=== PATIENT | female | born 1930 | race Two or more races ===

== ENCOUNTER 2016-07-31 13:05 | Observation (INO) | payer MEDICARE, OTHER ==
[~2016-07-31] VITALS: Ht 162.6 cm; Wt 62.1 kg
[2016-07-31] MEDS ORDERED: SODIUM CHLORIDE 0.9% 250 ML IV ONE (13:14)
[2016-07-31 13:32] LABS: BASOPHILS % 0.9 % (0.0-2.0); EOSINOPHILS % 0.5 % (0.0-5.0); HEMATOCRIT. 36.8 % (36.0-48.0); HEMOGLOBIN. 12.2 g/dL (12.0-16.0); LYMPHOCYTES % 25.3 % (20.0-50.0); MEAN CORPUSCULAR HEMOGLOBIN 32.7 pg (28.0-32.0); MEAN CORPUSCULAR HGB CONC 33.2 g/dL (31.0-37.0); MEAN CORPUSCULAR VOLUME 98.6 fL (81.0-99.0); MEAN PLATELET VOLUME 8.3 fl (7.4-10.4); MONOCYTES % 4.6 % (2.0-8.0); NEUTROPHILS % 68.7 % (40.0-76.0); PLATELET 282 x1000/uL (130-400); RED BLOOD CELL COUNT 3.73 mill/uL (4.2-5.4); RED CELL DISTRIBUTION WIDTH 14.4 % (11.6-14.6); WHITE BLOOD COUNT 7.7 x1000/uL (4.5-11.0)
[2016-07-31 13:38] LABS: CHLORIDE 110 mEq/L (98-107); INDEX HEMOLYSI 1 (1-3); INDEX ICTERIC 1 (1-4); INDEX LIPEMIC 1 (1-3)
[2016-07-31 13:40] LABS: PARTIAL THROMBOPLASTIN TIME 26.8 sec (24.0-34.0); PROTHROMBIN TIME 10.2 sec
[2016-07-31 13:47] LABS: ALANINE AMINOTRANSFERASE < 6 IU/L (13-61); ALBUMIN 3.5 g/dL (3.4-5.0); ANION GAP 17; CALCIUM 8.6 mg/dL (8.5-10.1); CARBON DIOXIDE 17 mEq/L (21-32); MAGNESIUM 2.5 mg/dL (1.8-2.4); TROPONIN I < 0.02 ng/mL (0.00-0.04); UREA NITROGEN BLOOD 40 mg/dL (7-21); eGFR 12 mL/min (>60)
[2016-07-31 13:50] LABS: CREATINE KINASE MB FRACTION 0.8 ng/mL (0.5-3.6); NT PRO B-TYPE NATRIURETIC PEP 349 pg/mL (5-125)
[2016-07-31] MEDS ORDERED: DEXTROSE 50% WATER 50ML SYRINGE IV ONE ×2 (14:08→14:15)
[2016-07-31] MEDS ORDERED: IPRATROPIUM/ALBUTEROL 0.5-3(2.5)MG/3ML NEB INH PRN (15:45)
[2016-07-31] MEDS ORDERED: ONDANSETRON HCL 4MG/2ML VIAL IV PRN (15:45)
[2016-07-31] MEDS ORDERED: ACETAMINOPHEN 325MG TABLET PO PRN (15:45)
[2016-07-31] MEDS ORDERED: CLONIDINE 0.1MG TABLET PO PRN (15:45)
[2016-07-31] MEDS ORDERED: DOCUSATE SODIUM 100MG CAPSULE PO PRN (15:45)
[2016-07-31] MEDS ORDERED: HYDROCODONE/ACETAMINOPHEN 5/325MG TABLET PO PRN (15:45)
[2016-07-31] MEDS ORDERED: DEXTROSE 50% WATER 50ML SYRINGE IV PRN (15:45)
[2016-07-31 17:14] LABS: CLARITY URINE CLEAR (CLEAR); COLOR URINE YELLOW (YELLOW); GLUCOSE URINE NEGATIVE (NEGATIVE); KETONES URINE NEGATIVE (NEGATIVE); LEUKOCYTE ESTERASE URINE 1+ (NEGATIVE); NITRITE URINE NEGATIVE (NEGATIVE); OCCULT BLOOD URINE NEGATIVE (NEGATIVE); PROTEIN URINE TRACE (NEGATIVE); SPECIFIC GRAVITY URINE 1.016 (1.005-1.030); UROBILINOGEN URINE 0.2 E.U./dL (0.2-1.0)
[2016-07-31 18:00] LABS: BACTERIA URINE 1+; RBC URINE 0-2 /hpf (0-2); SQUAMOUS EPITHELIAL CELL URINE FEW /lpf (RARE/1+); WBC URINE 0-2 /hpf (0-2)
[2016-07-31] MEDS: HEPARIN 5000 UNITS/ML VIAL SUBCUT SCH (23:42)
[2016-07-31] MEDS ORDERED: LEVE500T19 PO (23:59)
[2016-07-31] MEDS ORDERED: GABA-531 PO (23:59)
[2016-07-31] MEDS ORDERED: SIMV10TA6 PO (23:59)
[2016-07-31] MEDS ORDERED: SERT25TA74 PO (23:59)
[2016-07-31] MEDS ORDERED: CLOP75TA33 PO (23:59)
[2016-07-31] MEDS ORDERED: RANI150T7 PO (23:59)
[2016-07-31] MEDS ORDERED: HYDR25TA PO (23:59)
[2016-07-31] MEDS ORDERED: TEMA15CA46 PO (23:59)
[2016-07-31] MEDS ORDERED: IBUP-1510 PO (23:59)
[2016-08-01] VITALS (9 sets, daily range): BP systolic 103–144; BP diastolic 64–93
[2016-08-01] MEDS: SODIUM CHLORIDE 0.9% 1,000 ML IV SCH ×2 (01:03→19:54)
[2016-08-01] MEDS ORDERED: TEMAZEPAM 15MG CAPSULE PO PRN (01:30)
[2016-08-01] MEDS: IPRATROPIUM/ALBUTEROL 0.5-3(2.5)MG/3ML NEB INH SCH ×3 (01:53→20:38)
[2016-08-01] MEDS ORDERED: LEVOFLOXACIN 500MG PREMIX 100 ML IV NR (03:00)
[2016-08-01] MEDS: BLOOD SUGAR DIAGNOSTIC STRIP TEST SCH ×4 (05:54→20:35)
[2016-08-01 06:09] LABS: CHLORIDE 112 mEq/L (98-107); INDEX HEMOLYSI 1 (1-3); INDEX ICTERIC 1 (1-4); INDEX LIPEMIC 1 (1-3)
[2016-08-01 06:20] LABS: ALANINE AMINOTRANSFERASE < 6 IU/L (13-61); ANION GAP 15; CARBON DIOXIDE 18 mEq/L (21-32); T4 FREE 0.57 ng/dL (0.76-1.46); TROPONIN I < 0.02 ng/mL (0.00-0.04); eGFR 17 mL/min (>60)
[2016-08-01 06:24] LABS: BASOPHILS % 0.5 % (0.0-2.0); HEMATOCRIT. 31.8 % (36.0-48.0); HEMOGLOBIN. 10.4 g/dL (12.0-16.0); MEAN CORPUSCULAR HGB CONC 32.8 g/dL (31.0-37.0); MEAN CORPUSCULAR VOLUME 97.6 fL (81.0-99.0); MEAN PLATELET VOLUME 8.8 fl (7.4-10.4); MONOCYTES % 7.1 % (2.0-8.0); NEUTROPHILS % 62.4 % (40.0-76.0); PLATELET 242 x1000/uL (130-400); RED BLOOD CELL COUNT 3.26 mill/uL (4.2-5.4); RED CELL DISTRIBUTION WIDTH 14.4 % (11.6-14.6); WHITE BLOOD COUNT 8.1 x1000/uL (4.5-11.0)
[2016-08-01] MEDS: INSULIN LISPRO 100 UNITS/ML SUBCUT SCH ×4 (06:26→20:35)
[2016-08-01 06:45] LABS: ALBUMIN 2.8 g/dL (3.4-5.0); CALCIUM 8.1 mg/dL (8.5-10.1); UREA NITROGEN BLOOD 35 mg/dL (7-21)
[2016-08-01] MEDS: HEPARIN 5000 UNITS/ML VIAL SUBCUT SCH ×2 (11:01→20:42)
[2016-08-01] MEDS: ASPIRIN 81MG EC TABLET PO SCH (11:01)
[2016-08-02] VITALS: BP_SYST 111; BP_SYST 117; BP_DIAS 75; BP_DIAS 77
[2016-08-02] MEDS: IPRATROPIUM/ALBUTEROL 0.5-3(2.5)MG/3ML NEB INH SCH (00:48)
[2016-08-02 04:00] VITALS: BP 134/83
[2016-08-02] MEDS: BLOOD SUGAR DIAGNOSTIC STRIP TEST SCH ×2 (06:12→12:23)
[2016-08-02] MEDS: INSULIN LISPRO 100 UNITS/ML SUBCUT SCH ×2 (06:21→12:15)
[2016-08-02 08:00] VITALS: BP 117/80
[2016-08-02] MEDS: ASPIRIN 81MG EC TABLET PO SCH (08:59)
[2016-08-02] MEDS: HEPARIN 5000 UNITS/ML VIAL SUBCUT SCH (09:02)
[2016-08-02 12:00] VITALS: BP 117/64
[2016-08-02 12:45] VITALS: BP 117/64
[2016-08-03] MEDS ORDERED: LEVOFLOXACIN 250MG PREMIX 50 ML IV SCH (03:00)
== END 2016-08-02 16:00 | disposition home or self-care (01) ==
LOC: ER 13:42 → INTOOBSV 14:18 → 5WST 14:18
PROVIDERS: ADMIT Internal Medicine; ATTEND Internal Medicine
DX: R55 Syncope and collapse (principal); N18.9 Chronic kidney disease, unspecified; I12.9 Hypertensive chronic kidney disease with stage 1 through stage 4 chronic kidney disease, or unspecified chronic kidney disease; E78.5 Hyperlipidemia, unspecified; R42 Dizziness and giddiness; R47.81 Slurred speech; E78.00 Pure hypercholesterolemia, unspecified; E16.2 Hypoglycemia, unspecified; E87.2 Acidosis; N17.9 Acute kidney failure, unspecified; J84.10 Pulmonary fibrosis, unspecified; G93.40 Encephalopathy, unspecified; F17.200 Nicotine dependence, unspecified, uncomplicated; Z87.440 Personal history of urinary (tract) infections; Z96.649 Presence of unspecified artificial hip joint; Z86.73 Personal history of transient ischemic attack (TIA), and cerebral infarction without residual deficits
CPT/HCPCS: 36415; 70450; 70551; 71010; 80053; 81001; 82553; 82962; 83735; 83880; 84439; 84484; 85025; 85610; 85730; 93005; 93306; 93880; 94640; 96361; 96365; 96372; 96375; 97162; 97166; 99285; G0378; J1644; J1956; J7030; J7050; J7620

== ENCOUNTER 2016-08-06 08:59 | Observation (INO) | payer MEDICARE ==
[~2016-08-06] VITALS: Ht 162.6 cm; Wt 78.0 kg
[~2016-08-06 08:59] MED LIST: CLOP75TA33 PO; GABA-531 PO; IBUP-1510 PO; LEVE500T19 PO; RANI150T7 PO; SERT25TA74 PO; SIMV10TA6 PO; TEMA15CA46 PO
[2016-08-06 09:34] LABS: EOSINOPHILS % 2.7 % (0.0-5.0); HEMATOCRIT. 35.6 % (36.0-48.0); HEMOGLOBIN. 11.5 g/dL (12.0-16.0); LYMPHOCYTES % 34.8 % (20.0-50.0); MEAN CORPUSCULAR HEMOGLOBIN 32.2 pg (28.0-32.0); MEAN CORPUSCULAR HGB CONC 32.3 g/dL (31.0-37.0); MEAN CORPUSCULAR VOLUME 99.8 fL (81.0-99.0); MEAN PLATELET VOLUME 8.3 fl (7.4-10.4); MONOCYTES % 5.3 % (2.0-8.0); NEUTROPHILS % 56.2 % (40.0-76.0); PLATELET 268 x1000/uL (130-400); RED BLOOD CELL COUNT 3.57 mill/uL (4.2-5.4); RED CELL DISTRIBUTION WIDTH 14.8 % (11.6-14.6); WHITE BLOOD COUNT 7.6 x1000/uL (4.5-11.0)
[2016-08-06 09:38] LABS: DIFFERENTIAL COMMENT 1
[2016-08-06 09:41] LABS: PROTHROMBIN TIME 10.4 sec
[2016-08-06 09:46] LABS: ALANINE AMINOTRANSFERASE < 6 IU/L (13-61); ALBUMIN 3.3 g/dL (3.4-5.0); ANION GAP 14; CALCIUM 9.1 mg/dL (8.5-10.1); CARBON DIOXIDE 21 mEq/L (21-32); CHLORIDE 115 mEq/L (98-107); ETHANOL BLOOD < 10 mg/dL; INDEX HEMOLYSI 1 (1-3); INDEX ICTERIC 1 (1-4); INDEX LIPEMIC 1 (1-3); LIPASE 145 IU/L (73-393); UREA NITROGEN BLOOD 35 mg/dL (7-21); eGFR 15 mL/min (>60)
[2016-08-06 09:50] LABS: NT PRO B-TYPE NATRIURETIC PEP 415 pg/mL (5-125); TROPONIN I < 0.02 ng/mL (0.00-0.04)
[2016-08-06 11:42] LABS: CLARITY URINE CLEAR (CLEAR); COLOR URINE YELLOW (YELLOW); GLUCOSE URINE NEGATIVE (NEGATIVE); KETONES URINE NEGATIVE (NEGATIVE); LEUKOCYTE ESTERASE URINE NEGATIVE (NEGATIVE); NITRITE URINE NEGATIVE (NEGATIVE); OCCULT BLOOD URINE NEGATIVE (NEGATIVE); PH URINE 5.5 (4.5-8.0); PROTEIN URINE TRACE (NEGATIVE); SPECIFIC GRAVITY URINE 1.018 (1.005-1.030); UROBILINOGEN URINE 0.2 E.U./dL (0.2-1.0)
[2016-08-06 11:58] LABS: BACTERIA URINE NONE SEEN; RBC URINE 0-2 /hpf (0-2); WBC URINE 0-2 /hpf (0-2)
[2016-08-06 12:00] LABS: FINE GRANULAR CASTS URINE 0-5 /lpf; SQUAMOUS EPITHELIAL CELL URINE FEW /lpf (RARE/1+)
[2016-08-06] MEDS ORDERED: HYDROCODONE/ACETAMINOPHEN 5/325MG TABLET PO PRN (15:15)
[2016-08-06] MEDS ORDERED: ACETAMINOPHEN 325MG TABLET PO PRN (15:15)
[2016-08-06] MEDS ORDERED: ONDANSETRON HCL 4MG/2ML VIAL IV PRN (15:15)
[2016-08-06] MEDS ORDERED: IPRATROPIUM/ALBUTEROL 0.5-3(2.5)MG/3ML NEB INH PRN (15:15)
[2016-08-06] MEDS ORDERED: CLONIDINE 0.1MG TABLET PO PRN (15:15)
[2016-08-06 17:28] VITALS: BP 135/68
[2016-08-06] MEDS: ENOXAPARIN 30MG/0.3ML SYR SUBCUT SCH (18:00)
[2016-08-06] MEDS: SERTRALINE HCL 50MG TABLET PO SCH (18:43)
[2016-08-06] MEDS: CLOPIDOGREL 75MG TABLET PO SCH (18:43)
[2016-08-06] MEDS: LEVETIRACETAM 500MG TABLET PO SCH (18:43)
[2016-08-06 18:51] VITALS: BP 135/68
[2016-08-06 20:00] VITALS: BP 143/91
[2016-08-06] MEDS ORDERED: TEMAZEPAM 15MG CAPSULE PO PRN (21:00)
[2016-08-06] MEDS ORDERED: GABAPENTIN 300MG CAPSULE PO SCH (21:00)
[2016-08-06 23:01] LABS: CREATINE KINASE 88 IU/L (26-192); INDEX HEMOLYSI 1 (1-3); TROPONIN I < 0.02 ng/mL (0.00-0.04)
[2016-08-07] VITALS: BP 127/69
[2016-08-07 04:00] VITALS: BP 157/98
[2016-08-07 06:59] LABS: ALANINE AMINOTRANSFERASE < 6 IU/L (13-61); CHLORIDE 116 mEq/L (98-107); CREATINE KINASE 83 IU/L (26-192); HDL CHOLESTEROL 64 mg/dL (40-59); INDEX HEMOLYSI 1 (1-3); INDEX ICTERIC 1 (1-4); INDEX LIPEMIC 1 (1-3); T4 FREE 0.53 ng/dL (0.76-1.46); TROPONIN I < 0.02 ng/mL (0.00-0.04)
[2016-08-07 07:10] LABS: ALBUMIN 3.1 g/dL (3.4-5.0); ANION GAP 14; CALCIUM 9.2 mg/dL (8.5-10.1); CARBON DIOXIDE 20 mEq/L (21-32); LDL CHOLESTEROL 93 mg/dL (5-100); TRIGLYCERIDE 162 mg/dL (0-150); UREA NITROGEN BLOOD 33 mg/dL (7-21); eGFR 20 mL/min (>60)
[2016-08-07 07:31] LABS: BASOPHILS % 0.5 % (0.0-2.0); DIFFERENTIAL COMMENT 0; EOSINOPHILS % 2.3 % (0.0-5.0); HEMATOCRIT. 38.3 % (36.0-48.0); HEMOGLOBIN. 12.1 g/dL (12.0-16.0); MEAN CORPUSCULAR HEMOGLOBIN 32.3 pg (28.0-32.0); MEAN CORPUSCULAR HGB CONC 31.6 g/dL (31.0-37.0); MEAN CORPUSCULAR VOLUME 102.1 fL (81.0-99.0); MONOCYTES % 5.5 % (2.0-8.0); NEUTROPHILS % 68.7 % (40.0-76.0); PLATELET 235 x1000/uL (130-400); RED BLOOD CELL COUNT 3.75 mill/uL (4.2-5.4); RED CELL DISTRIBUTION WIDTH 14.9 % (11.6-14.6); WHITE BLOOD COUNT 9.2 x1000/uL (4.5-11.0)
[2016-08-07 08:00] VITALS: BP 136/86
[2016-08-07] MEDS: LEVETIRACETAM 500MG TABLET PO SCH ×2 (09:47→17:06)
[2016-08-07] MEDS: SERTRALINE HCL 50MG TABLET PO SCH (09:47)
[2016-08-07] MEDS: CLOPIDOGREL 75MG TABLET PO SCH (09:47)
[2016-08-07 12:00] VITALS: BP 127/82
[2016-08-07 16:00] VITALS: BP 147/86
[2016-08-07] MEDS: ENOXAPARIN 30MG/0.3ML SYR SUBCUT SCH (17:06)
[2016-08-07 17:37] VITALS: BP 147/86
== END 2016-08-07 20:40 ==
LOC: ER 09:05 → 5WST 12:11 → INTOOBSV 12:11
PROVIDERS: ADMIT Internal Medicine; ATTEND Internal Medicine
DX: R47.9 Unspecified speech disturbances (principal); I12.9 Hypertensive chronic kidney disease with stage 1 through stage 4 chronic kidney disease, or unspecified chronic kidney disease; N18.9 Chronic kidney disease, unspecified; Z86.73 Personal history of transient ischemic attack (TIA), and cerebral infarction without residual deficits
CPT/HCPCS: 36415; 70450; 70551; 71010; 80053; 80061; 81001; 82550; 83690; 83880; 84439; 84443; 84484; 85025; 85610; 92523; 93005; 97163; 99285; G0378; G0482; J1650

== ENCOUNTER 2018-02-17 05:17 | Emergency (ER) | payer OTHER ==
[~2018-02-17] VITALS: Ht 162.6 cm; Wt 64.0 kg
[~2018-02-17 05:17] MED LIST changes: -IBUP-1510 PO; +IBUP-2030 PO; -TEMA15CA46 PO; +TEMA15CA5 PO
[2018-02-17 07:49] VITALS: BP 150/78
== END 2018-02-17 11:02 | disposition home or self-care (01) ==
LOC: ER 05:17
DX: S00.83XA Contusion of other part of head, initial encounter (principal); W01.198A Fall on same level from slipping, tripping and stumbling with subsequent striking against other object, initial encounter; R03.0 Elevated blood-pressure reading, without diagnosis of hypertension; Y93.01 Activity, walking, marching and hiking; Y92.091 Bathroom in other non-institutional residence as the place of occurrence of the external cause; I69.398 Other sequelae of cerebral infarction; R26.2 Difficulty in walking, not elsewhere classified
CPT/HCPCS: 71045; 99284

== ENCOUNTER 2022-01-07 01:39 | Inpatient (IN) | payer MEDICARE, OTHER ==
[~2022-01-07] VITALS: Ht 165.1 cm; Wt 76.7 kg
[~2022-01-07 01:39] MED LIST changes: -GABA-531 PO; +GABA-532 PO; -SIMV10TA6 PO; +SIMV10TA97 PO
[2022-01-07] MEDS ORDERED: MORPHINE SULFATE 4 MG/ML CPJ (NOT FOR IM USE) IV STA (02:51)
[2022-01-07] MEDS ORDERED: ONDANSETRON HCL 4MG/2ML INJ IV STA (02:51)
[2022-01-07] MEDS ORDERED: SODIUM CHLORIDE 0.9% 1,000 ML IV ONE (03:00)
[2022-01-07 03:12] LABS: BASOPHILS % 0.9 % (0.0-2.0); EOSINOPHILS % 1.9 % (0.0-5.0); HEMATOCRIT. 41.7 % (36.0-48.0); HEMOGLOBIN. 12.6 g/dL (12.0-16.0); LYMPHOCYTES % 28.6 % (20.0-50.0); MEAN CORPUSCULAR HEMOGLOBIN 31.9 pg (28.0-32.0); MEAN CORPUSCULAR VOLUME 105.4 fL (81.0-99.0); MEAN PLATELET VOLUME 8.2 fl (7.4-10.4); MONOCYTES % 8.5 % (2.0-8.0); NEUTROPHILS % 60.1 % (40.0-76.0); PLATELET 288 x1000/uL (130-400); RED BLOOD CELL COUNT 3.96 mill/uL (4.2-5.4); RED CELL DISTRIBUTION WIDTH 17.1 % (11.6-14.6)
[2022-01-07 03:23] LABS: PARTIAL THROMBOPLASTIN TIME 25.6 sec (23.4-31.0); PROTHROMBIN TIME 10.4 sec (9.6-11.0)
[2022-01-07 04:51] LABS: CHLORIDE 115 mEq/L (98-107)
[2022-01-07] MEDS ORDERED: DEXTROSE 50% WATER 50ML SYRINGE IV ONE (05:00)
[2022-01-07] MEDS ORDERED: ALBUTEROL (0.083%) 2.5MG/3ML NEB HHN ONE (05:00)
[2022-01-07] MEDS ORDERED: CALCIUM GLUCONATE 100MG/ML 10ML VIAL IV ONE (05:00)
[2022-01-07] MEDS ORDERED: SODIUM BICARBONATE 8.4% 1 MEQ/ML 50ML SYR IV ONE (05:00)
[2022-01-07] MEDS ORDERED: INSULIN REGULAR (HUMULIN R) 300UNITS/3ML VIAL IV ONE (05:00)
[2022-01-07] MEDS ORDERED: SODIUM POLYSTYRENE SULFONATE 15 G/60 ML BOT PO ONE (05:00)
[2022-01-07] MEDS ORDERED: SODIUM BICARBONATE 100 MEQ in DEXTROSE 5% WATER 1,000 ML IV SCH (06:00)
[2022-01-07 06:29] LABS: CREATINE KINASE 61 IU/L (26-192)
[2022-01-07 15:43] LABS: BG BASE EXCESS -8.2 mmol/L (-2.0-2.0); BG CARBOXYHEMOGLOBIN 0.4 % (0.5-1.5); BG HCO3 ACT 19.2 mmol/L (22.0-26.0); BG METHEMOGLOBIN 0.2 % (0.0-1.5); BG OXYHEMOGLOBIN 96.4 % (94.0-97.0); BG PCO2 46.7 mmHg (35.0-45.0); BG PH 7.231 (7.350-7.450); BG PO2 102.2 mmHg (75.0-100.0); BG SAMPLE SITE RIGHT BRACHIAL; BG TOTAL HEMOGLOBIN 12.3 g/dL (12.0-18.0); BG VENT MODE NASAL CANNULA
[2022-01-07 16:52] LABS: BASOPHILS % 0.8 % (0.0-2.0); EOSINOPHILS % 0.8 % (0.0-5.0); HEMATOCRIT. 35.9 % (36.0-48.0); HEMOGLOBIN. 11.5 g/dL (12.0-16.0); LYMPHOCYTES % 19.3 % (20.0-50.0); MEAN CORPUSCULAR HEMOGLOBIN 32.7 pg (28.0-32.0); MEAN CORPUSCULAR VOLUME 102.2 fL (81.0-99.0); MEAN PLATELET VOLUME 8.2 fl (7.4-10.4); MONOCYTES % 7.8 % (2.0-8.0); NEUTROPHILS % 71.3 % (40.0-76.0); PLATELET 286 x1000/uL (130-400); RED BLOOD CELL COUNT 3.51 mill/uL (4.2-5.4); RED CELL DISTRIBUTION WIDTH 16.6 % (11.6-14.6)
[2022-01-07 17:19] VITALS: BP 108/49
[2022-01-07 18:00] VITALS: BP 115/64
[2022-01-07 20:00] VITALS: BP 108/49
[2022-01-07 20:32] LABS: CHLORIDE 112 mEq/L (98-107)
[2022-01-07] MEDS ORDERED: SODIUM BICARBONATE 8.4% 1 MEQ/ML 50ML SYR IV NR (21:30)
[2022-01-07] MEDS ORDERED: DEXTROSE 50% WATER 50ML SYRINGE IV NR (21:30)
[2022-01-07] MEDS ORDERED: SODIUM POLYSTYRENE SULFONATE 15 G/60 ML BOT PO NR (21:30)
[2022-01-07] MEDS ORDERED: ACETAMINOPHEN 325MG TABLET PO PRN (21:30)
[2022-01-07] MEDS ORDERED: ZOLPIDEM TARTRATE 5MG TABLET PO PRN (21:30)
[2022-01-07] MEDS ORDERED: IPRATROPIUM/ALBUTEROL 0.5-3(2.5)MG/3ML NEB HHN PRN (21:30)
[2022-01-07] MEDS ORDERED: CLONIDINE 0.1MG TABLET PO PRN (21:30)
[2022-01-07] MEDS ORDERED: INSULIN REGULAR (HUMULIN R) 300UNITS/3ML VIAL IV NR (21:30)
[2022-01-07 21:45] VITALS: BP 108/49
[2022-01-07 22:00] VITALS: BP 115/64
[2022-01-07] MEDS: LEVETIRACETAM 500MG PREMIX 100 ML IV SCH (22:02)
[2022-01-07] MEDS ORDERED: DEXTROSE 50% WATER 50ML SYRINGE IV PRN (23:30)
[2022-01-08] VITALS (10 sets, daily range): BP systolic 99–136; BP diastolic 58–79
[2022-01-08] MEDS: BLOOD SUGAR DIAGNOSTIC STRIP TEST SCH ×4 (07:30→20:52)
[2022-01-08] MEDS: INSULIN LISPRO 100 UNITS/ML SUBCUT SCH ×4 (07:30→20:54)
[2022-01-08] MEDS: LEVETIRACETAM 500MG PREMIX 100 ML IV SCH ×2 (08:34→20:36)
[2022-01-08 09:20] LABS: BG BASE EXCESS -5.5 mmol/L (-2.0-2.0); BG CARBOXYHEMOGLOBIN 1.1 % (0.5-1.5); BG DEOXYHEMOGLOBIN 11.1 % (0.0-5.0); BG FRACTION INSPIRED OXYGEN 21; BG HCO3 ACT 21.6 mmol/L (22.0-26.0); BG OXYGEN SATURATION 88.8 % (92.0-98.5); BG OXYHEMOGLOBIN 87.8 % (94.0-97.0); BG PCO2 49.2 mmHg (35.0-45.0); BG PH 7.261 (7.350-7.450); BG PO2 57.8 mmHg (75.0-100.0); BG SAMPLE SITE RIGHT BRACHIAL; BG TOTAL HEMOGLOBIN 11.3 g/dL (12.0-18.0); BG VENT MODE ROOM AIR
[2022-01-08] MEDS ORDERED: ALBUTEROL (0.5%) 2.5MG/0.5ML NEB HHN NR (11:15)
[2022-01-08] MEDS: CITRIC ACID/SODIUM CITRATE SOLN 30ML UDC PO SCH ×2 (13:20→17:00)
[2022-01-08] MEDS: ATORVASTATIN CALCIUM 40MG TABLET PO SCH (20:36)
[2022-01-09] VITALS (9 sets, daily range): BP systolic 97–126; BP diastolic 55–79
[2022-01-09 06:48] LABS: BASOPHILS % 0.9 % (0.0-2.0); EOSINOPHILS % 2.5 % (0.0-5.0); HEMATOCRIT. 35.7 % (36.0-48.0); HEMOGLOBIN. 11.2 g/dL (12.0-16.0); LYMPHOCYTES % 30.7 % (20.0-50.0); MEAN CORPUSCULAR HEMOGLOBIN 32.4 pg (28.0-32.0); MEAN CORPUSCULAR VOLUME 103.1 fL (81.0-99.0); MEAN PLATELET VOLUME 8.8 fl (7.4-10.4); MONOCYTES % 8.5 % (2.0-8.0); NEUTROPHILS % 57.4 % (40.0-76.0); PLATELET 265 x1000/uL (130-400); RED BLOOD CELL COUNT 3.46 mill/uL (4.2-5.4); RED CELL DISTRIBUTION WIDTH 16.6 % (11.6-14.6)
[2022-01-09] MEDS: INSULIN LISPRO 100 UNITS/ML SUBCUT SCH ×4 (07:30→21:00)
[2022-01-09 07:35] LABS: T4 FREE 0.68 ng/dL (0.76-1.46)
[2022-01-09] MEDS: BLOOD SUGAR DIAGNOSTIC STRIP TEST SCH ×4 (08:04→21:17)
[2022-01-09] MEDS: LEVETIRACETAM 500MG PREMIX 100 ML IV SCH ×2 (08:57→21:17)
[2022-01-09] MEDS: CITRIC ACID/SODIUM CITRATE SOLN 30ML UDC PO SCH ×3 (08:57→17:00)
[2022-01-09] MEDS: ATORVASTATIN CALCIUM 40MG TABLET PO SCH (21:17)
[2022-01-10 04:00] VITALS: BP 117/74
[2022-01-10] MEDS: INSULIN LISPRO 100 UNITS/ML SUBCUT SCH ×4 (07:30→21:00)
[2022-01-10] MEDS: BLOOD SUGAR DIAGNOSTIC STRIP TEST SCH ×4 (07:30→21:20)
[2022-01-10] MEDS: LEVETIRACETAM 500MG PREMIX 100 ML IV SCH ×2 (09:39→21:20)
[2022-01-10] MEDS: CITRIC ACID/SODIUM CITRATE SOLN 30ML UDC PO SCH ×3 (09:39→16:51)
[2022-01-10 10:00] VITALS: BP 116/48
[2022-01-10 12:00] VITALS: BP 128/89
[2022-01-10 14:00] VITALS: BP 128/89
[2022-01-10 15:28] LABS: BASOPHILS % 0.5 % (0.0-2.0); EOSINOPHILS % 1.8 % (0.0-5.0); HEMOGLOBIN. 11.8 g/dL (12.0-16.0); LYMPHOCYTES % 21.3 % (20.0-50.0); MEAN CORPUSCULAR HEMOGLOBIN 32.3 pg (28.0-32.0); MEAN CORPUSCULAR VOLUME 101.4 fL (81.0-99.0); MEAN PLATELET VOLUME 8.6 fl (7.4-10.4); MONOCYTES % 7.4 % (2.0-8.0); PLATELET 266 x1000/uL (130-400); RED BLOOD CELL COUNT 3.65 mill/uL (4.2-5.4)
[2022-01-10 20:00] VITALS: BP 126/77
[2022-01-10] MEDS: ATORVASTATIN CALCIUM 40MG TABLET PO SCH (21:20)
[2022-01-11] VITALS (9 sets, daily range): BP systolic 119–137; BP diastolic 58–77
[2022-01-11 05:50] LABS: BASOPHILS % 0.8 % (0.0-2.0); EOSINOPHILS % 2.5 % (0.0-5.0); HEMATOCRIT. 36.1 % (36.0-48.0); HEMOGLOBIN. 11.5 g/dL (12.0-16.0); LYMPHOCYTES % 30.7 % (20.0-50.0); MEAN CORPUSCULAR HEMOGLOBIN 32.6 pg (28.0-32.0); MEAN CORPUSCULAR VOLUME 102.2 fL (81.0-99.0); MEAN PLATELET VOLUME 8.8 fl (7.4-10.4); MONOCYTES % 8.7 % (2.0-8.0); NEUTROPHILS % 57.3 % (40.0-76.0); PLATELET 261 x1000/uL (130-400); RED BLOOD CELL COUNT 3.53 mill/uL (4.2-5.4); RED CELL DISTRIBUTION WIDTH 15.9 % (11.6-14.6)
[2022-01-11] MEDS: INSULIN LISPRO 100 UNITS/ML SUBCUT SCH ×4 (07:30→20:32)
[2022-01-11] MEDS: BLOOD SUGAR DIAGNOSTIC STRIP TEST SCH ×4 (07:30→20:32)
[2022-01-11] MEDS: CITRIC ACID/SODIUM CITRATE SOLN 30ML UDC PO SCH (09:16)
[2022-01-11] MEDS: LEVETIRACETAM 500MG PREMIX 100 ML IV SCH (09:16)
[2022-01-11] MEDS: ATORVASTATIN CALCIUM 40MG TABLET PO SCH (20:31)
[2022-01-11] MEDS: LEVETIRACETAM 500MG TABLET PO SCH (20:31)
[2022-01-12] VITALS (7 sets, daily range): BP systolic 124–158; BP diastolic 52–78
[2022-01-12 06:00] LABS: BASOPHILS % 0.8 % (0.0-2.0); EOSINOPHILS % 2.9 % (0.0-5.0); HEMATOCRIT. 36.5 % (36.0-48.0); HEMOGLOBIN. 11.9 g/dL (12.0-16.0); LYMPHOCYTES % 31.2 % (20.0-50.0); MEAN CORPUSCULAR HEMOGLOBIN 33.5 pg (28.0-32.0); MEAN CORPUSCULAR VOLUME 102.9 fL (81.0-99.0); MEAN PLATELET VOLUME 9.2 fl (7.4-10.4); MONOCYTES % 8.7 % (2.0-8.0); NEUTROPHILS % 56.4 % (40.0-76.0); PLATELET 169 x1000/uL (130-400); RED BLOOD CELL COUNT 3.55 mill/uL (4.2-5.4); RED CELL DISTRIBUTION WIDTH 16.1 % (11.6-14.6)
[2022-01-12] MEDS: BLOOD SUGAR DIAGNOSTIC STRIP TEST SCH (07:30)
[2022-01-12] MEDS: INSULIN LISPRO 100 UNITS/ML SUBCUT SCH (07:30)
[2022-01-12] MEDS: LEVETIRACETAM 500MG TABLET PO SCH (09:02)
== END 2022-01-12 17:37 | disposition home health service (06) | DRG 682 ==
LOC: ER 02:08 → EDBEDREQ 05:25 → EDBEDREQSVC 05:26 → MICUSO 08:47 → EDBEDREQSVC 09:18 → 5EST 16:49
PROVIDERS: ADMIT Internal Medicine; ATTEND Internal Medicine
PROC: 4A00X4Z Measurement of Central Nervous Electrical Activity, External Approach (ICD-10-PCS; principal; 2022-01-09)
DX: N17.9 Acute kidney failure, unspecified (principal); I62.03 Nontraumatic chronic subdural hemorrhage; E87.20 Acidosis, unspecified; G93.40 Encephalopathy, unspecified; N18.30 Chronic kidney disease, stage 3 unspecified; E87.5 Hyperkalemia; I12.9 Hypertensive chronic kidney disease with stage 1 through stage 4 chronic kidney disease, or unspecified chronic kidney disease; R00.0 Tachycardia, unspecified; E78.5 Hyperlipidemia, unspecified; Z96.649 Presence of unspecified artificial hip joint; G40.909 Epilepsy, unspecified, not intractable, without status epilepticus; Z86.73 Personal history of transient ischemic attack (TIA), and cerebral infarction without residual deficits; Z88.0 Allergy status to penicillin; Z88.6 Allergy status to analgesic agent
CPT/HCPCS: 36415; 36600; 70551; 71045; 72192; 73080; 76770; 80048; 80053; 82375; 82550; 82553; 82607; 82805; 82962; 83036; 83880; 84132; 84439; 84443; 84481; 84484; 85025; 93005; 93306; 94644; 95816; 99291; A6261; J0610; J1815; J1953; J2270; J2405; J3490; J7070; A4315